=== PATIENT | male | born 2005 | race Caucasian/White ===

== ENCOUNTER → 2023-08-26 | Emergency (ER) | payer MEDICAID ==
[~2023-08-26] VITALS: Ht 177.8 cm; Wt 106.2 kg
[~2023-08-26] MED LIST: naproxen 500mg tablet PO ONE
--- NOTE | 2023-08-26 06:15 | NUR ---
PT REFUSES PAIN MEDICATION AT THIS TIME.
[2023-08-26 06:38] VITALS: BP 114/52; PULSE 67; RESP 17; TEMP 98.2; O2SAT 97
== END | disposition home or self-care (01) ==
LOC: ER 06:07
DX: S46.912A Strain of unspecified muscle, fascia and tendon at shoulder and upper arm level, left arm, initial encounter (principal); S50.811A Abrasion of right forearm, initial encounter; W18.39XA Other fall on same level, initial encounter; Y93.89 Activity, other specified; Y92.89 Other specified places as the place of occurrence of the external cause; Y99.8 Other external cause status
CPT/HCPCS: 73030; 99284